=== PATIENT | male | born 1965 | race Hispanic/Latino ===

== ENCOUNTER 2017-11-24 12:42 | Emergency (ER) | payer MEDICARE ==
[~2017-11-24] VITALS: Ht 165.1 cm; Wt 70.3 kg
[2017-11-24] MEDS ORDERED: KETOROLAC TROMETHAMINE 30 MG/ML VIAL IV STA (14:26)
[2017-11-24] MEDS ORDERED: DICYCLOMINE HCL 20 MG/2 ML VIAL IM ONE ×2 (14:30→19:15)
[2017-11-24 17:14] LABS: BASOPHILS % 0.3 % (0.0-1.0); EOSINOPHILS # (AUTO) 0.2 (0.0-0.4); EOSINOPHILS % 1.8 % (0.0-6.0); HEMATOCRIT 48.2 % (38.2-49.6); HEMOGLOBIN 16.9 g/dL (14.0-18.0); LYMPHOCYTES % 19.5 % (18.0-39.1); MEAN CORPUSCULAR HEMOGLOBIN 33.4 pg (28-32); MEAN CORPUSCULAR HGB CONC 35.1 g/dL (31-35); MEAN CORPUSCULAR VOLUME 95.3 fL (81-99); MONOCYTES # (AUTO) 0.6 (0.2-0.8); MONOCYTES % 5.9 % (4.4-11.3); NEUTROPHILS # (AUTO) 7.5 (2.1-6.9); NEUTROPHILS % 72.2 % (38.7-80.0); PLATELET COUNT 249 x10e3/uL (140-360); RED BLOOD COUNT 5.06 x10e6/uL (4.3-5.7); RED CELL DISTRIBUTION WIDTH 12.8 % (11.7-14.4)
[2017-11-24 17:27] LABS: BILIRUBIN,URINE NEGATIVE (NEGATIVE); CLARITY,URINE CLEAR (CLEAR); COLOR,URINE YELLOW (YELLOW); KETONES,URINE NEGATIVE (NEGATIVE); LEUKOCYTE ESTERASE ,URINE NEGATIVE (NEGATIVE); NITRITE,URINE NEGATIVE (NEGATIVE); PROTEIN,URINE DIPSTICK NEGATIVE (NEGATIVE); URINE UROBILINOGEN 0.2 mg/dL (0.2 - 1)
[2017-11-24 17:28] LABS: RBC,URINE 0-5 /HPF (0-5); WBC,URINE (MAN) 0-5 /HPF (0-5)
[2017-11-24 17:29] LABS: MUCUS,URINE FEW (RARE)
[2017-11-24 17:37] LABS: ALANINE AMINOTRANSFERASE 22 IU/L (0-55); ALBUMIN 4.5 g/dL (3.5-5.0); ALBUMIN/GLOBULIN RATIO 1.2 (0.8-2.0); ALKALINE PHOSPHATASE 91 IU/L (40-150); ANION GAP 15.9 mmol/L (8-16); BLOOD UREA NITROGEN 8 mg/dL (7-26); BUN/CREATININE RATIO 9 (6-25); CALCIUM 9.9 mg/dL (8.4-10.2); CARBON DIOXIDE 25 mmol/L (22-29); CHLORIDE 105 mmol/L (98-107); CREATININE, SERUM 0.86 mg/dL (0.72-1.25); EST GLOMERULAR FILTRATION RATE > 60 ML/MIN (60-); GLUCOSE 88 mg/dL (74-118); POTASSIUM 3.9 mmol/L (3.5-5.1); SODIUM 142 mmol/L (136-145)
--- NOTE | 2017-11-24 18:41 | Diagnostic Imaging Report ---
PROCEDURE: CT ABDOMEN AND PELVIS WITHOUT CONTRAST TECHNIQUE: The abdomen and pelvis were scanned utilizing a multidetector helical scanner from the diaphragm to the lesser trochanter after the oral administration of water. No IV contrast was administered due to history of iodine allergy. Oral Redicat was given.. Coronal and sagittal multiplanar reformations were obtained. COMPARISON: None. INDICATIONS: LLQ PAIN, left flank pain FINDINGS: ABSENCE OF INTRAVENOUS CONTRAST DECREASES SENSITIVITY FOR DETECTION OF FOCAL LESIONS AND VASCULAR PATHOLOGY. Kidneys: No renal or ureteral calculi. No hydronephrosis, hydroureter, or evidence of obstruction. No renal contour abnormalities. Mild to moderate circumferential bladder wall thickening. No focal lesions. Prostate and seminal vesicles are unremarkable. Lung bases are clear. Liver, spleen, pancreas, and adrenal glands are unremarkable. Visualized bowel shows no dilation or obstruction. Appendix is well identified and normal in caliber. No adenopathy. Atherosclerotic calcification of the distal abdominal aorta and proximal iliac vessels. No acute bony abnormalities. Postoperative changes at L5-S1 with fusion and placement of 2 screws traversing the L5 and S1 vertebral bodies. IMPRESSION: 1. No renal, ureteral, or bladder calculi. No hydronephrosis or obstruction. 2. Mild to moderate circumferential bladder wall thickening, which may reflect inflammatory or infectious cystitis. Bladder outlet obstruction as a less likely consideration given the normal appearing prostate. Matt Lomax M.D. Dictated by: Matt Lomax M.D. on 11/24/2017 at 18:49 Electronically approved by: Matt Lomax M.D. on 11/24/2017 at 18:49
[2017-11-24] MEDS ORDERED: KETOROLAC TROMETHAMINE 30 MG/ML VIAL IV ONE (19:15)
== END 2017-11-24 19:17 | disposition home or self-care (01) ==
LOC: ER 12:42
DX: R10.12 Left upper quadrant pain (principal); R10.32 Left lower quadrant pain; R11.0 Nausea; F17.210 Nicotine dependence, cigarettes, uncomplicated
CPT/HCPCS: 36415; 74176; 80053; 81001; 85025; 87086; 99284; J0500; J1885

== ENCOUNTER 2019-09-18 10:19 | Emergency (ER) | payer MEDICARE ==
[~2019-09-18] VITALS: Ht 165.1 cm; Wt 72.6 kg
--- OUTSIDE RECORDS SUMMARY | 2019-09-18 10:22 | XMS REPORT ---
Author Author [facility] Address Unknown Phone Unavailable Care Team Providers Care Printer Technician Name Role Phone Karina VITALE Unavailable Unavailable Problems This patient has no known problems. Allergies, Adverse Reactions, Alerts This patient has no known allergies or adverse reactions. Medications This patient has no known medications. Results Test Description Test Time Test Comments Text Results Atomic Results Result Comments CT ABDOMEN/PELVIS WO [place] [address] Patient Name: SAJAN GUILLAUME MR #: [id number] : 1965 Age/Sex: 52/M Req #: [id number] Adm Physician: Ordered by: MERE VITALE MD Report #: [id number] Location: ER Room/Bed: Procedure: [id number] CT/CT ABDOMEN/PELVIS WO Exam Date: 11/24/17 Exam Time: 1749 REPORT STATUS: Signed PROCEDURE: CT ABDOMEN AND PELVIS WITHOUT CONTRAST TECHNIQUE: The abdomen and pelvis were scanned utilizing a multidetector helical scanner from the diaphragm to the lesser trochanter after the oral administration of water. No IV contrast was administered due to history of iodine allergy. Oral Redicat was given.. Coronal and sagittal multiplanar reformations were obtained. COMPARISON: None. INDICATIONS: LLQ PAIN, left flank pain FINDINGS: ABSENCE OF INTRAVENOUS CONTRAST DECREASES SENSITIVITY FOR DETECTION OF FOCAL LESIONS AND VASCULAR PATHOLOGY. Kidneys: No renal or ureteral calculi. No hydronephrosis, hydroureter, or evidence of obstruction. No renal contour abnormalities. Mild to moderate circumferential bladder wall thickening. No focal lesions. Prostate and seminal vesicles are unremarkable. Lung bases are clear. Liver, spleen, pancreas, and adrenal glands are unremarkable. Visualized bowel shows no dilation or obstruction. Appendix is well identified and normal in caliber. No adenopathy. Atherosclerotic calcification of the distal abdominal aorta and proximal iliac vessels. No acute bony abnormalities. Postoperative changes at L5-S1 with fusion and placement of 2 screws traversing the L5 and S1 vertebral bodies. IMPRESSION: 1. No renal, ureteral, or bladder calculi. No hydronephrosis or obstruction. 2. Mild to moderate circumferential bladder wall thickening, which may reflect inflammatory or infectious cystitis. Bladder outlet obstruction as a less likely consideration given the normal appearing prostate. Meg Lomax M.D. Dictated by: Meg Lomax M.D. on 11/24/2017 at 18:49 Electronically approved by: Meg Lomax M.D. on 11/24/2017 at 18:49 Dictated By: MEG LOMAX MD 48 Transcribed By: LUCIA on 11/24/171848 COPY TO: MERE VITALE MD
== END 2019-09-18 11:14 | disposition home or self-care (01) ==
LOC: FSED 10:19
DX: R05 Cough (principal); J00 Acute nasopharyngitis [common cold]; H92.09 Otalgia, unspecified ear; F17.210 Nicotine dependence, cigarettes, uncomplicated
CPT/HCPCS: 99282